=== PATIENT | female | born 1940 | race Caucasian/White ===

== ENCOUNTER 2017-08-04 17:15 | Emergency (ER) | payer MEDICARE, BC | END 2017-08-04 17:38 | disposition home or self-care (01) | LOC: SCSER 17:15 | DX: L30.9 Dermatitis, unspecified (principal); L03.90 Cellulitis, unspecified; E11.9 Type 2 diabetes mellitus without complications | CPT/HCPCS: 99282 ==

== ENCOUNTER 2020-07-03 07:59 | Outpatient (CLI) | payer MEDICARE, BC ==
[2020-07-03 11:26] LABS: Bilirubin Neg (Negative); Blood, Urine 10 (Negative); Glucose, Urine (Dipstick) 250 mg/dL (Negative); Ketone, Urine Negative (Negative); Leukocyte 100 (Negative); Nitrite Negative (Negative); Protein, Urine (Dipstick) 15 mg/dl (Neg-Trace); Urobilinogen Normal mg/dL (Less than 2)
[2020-07-03 11:48] LABS: Hemoglobin 15.9 g/dL (12.0-16.0); Mean Corpuscular Hemoglobin 31.5 PG (27.0-33.0); Mean Corpuscular Volume 95.6 fl (80.0-100.0); Mean Platelet Volume 11.7 fl (7.4-10.4); Platelet Count 188 10x3/uL (130-400); Red Blood Cell (RBC) Count 5.04 10x6/uL (3.90-5.20); White Blood Cell (WBC) Count 8.1 10x3/uL (4.5-11.0)
[2020-07-03 11:53] LABS: Anion Gap 15 mmol/L (10-20); BUN (Urea Nitrogen) 20 mg/dL (9.8-20.1); Calc. Creatinine Clearance 0 mL/min (70-130); Calcium 9.6 mg/dL (7.8-10.44); Carbon Dioxide 25 mmol/L (23-31); Chloride 102 mmol/L (98-107); Glucose 83 mg/dL (83-110); Sodium 138 mmol/L (136-145)
[2020-07-03 11:59] LABS: Bacteria/HPF 3+ HPF (None Seen); Clarity Slightly Cloudy (Clear); RBC/HPF 0-3 HPF (0-3); Squamous Epithelial 0-3 HPF (0-3)
[2020-07-03 12:03] LABS: PTT 25.3 sec (22.0-33.0); Prothrombin Time 10.2 sec (9.5-12.1)
[2020-07-04 00:15] LABS: SARS-CoV-2 PCR by NAA Not Detected (NotDetected)
--- NOTE | 2020-07-04 12:33 | EKG ---
Test Reason : Blood Pressure : / mmHG Vent. Rate : 069 BPM Atrial Rate : 069 BPM P-R Int : 180 ms QRS Dur : 112 ms QT Int : 418 ms P-R-T Axes : 064 -49 060 degrees QTc Int : 447 ms Normal sinus rhythm Left anterior fascicular block Abnormal ECG No previous ECGs available Confirmed by MÓNICA LAN ([id number]) on 07/04/2020 12:32:52 PM Referred By: LELE Confirmed By:MÓNICA LAN
== END 2020-07-03 08:00 | disposition home or self-care (01) ==
LOC: LABBT 07:59
PROVIDERS: ATTEND Urology
DX: Z01.818 Encounter for other preprocedural examination (principal); N39.3 Stress incontinence (female) (male); N36.42 Intrinsic sphincter deficiency (ISD); Z20.822 Contact with and (suspected) exposure to COVID-19
CPT/HCPCS: 80048; 81001; 85027; 85610; 85730; 87086; U0003; U0005; 87077; 87186; 87635; 93005; 93010

== ENCOUNTER 2020-07-08 10:18 | Day surgery (SDC) | payer MEDICARE, BC ==
[2020-07-07 11:08] VITALS: BMI 32.5
[~2020-07-08 10:18] MED LIST: Ketorolac Tromethamine 30 MG/ML VIAL ONE; Lidocaine 1% PF 5 ML VIAL ONE; Metoclopramide HCl 10 MG/2 ML VIAL ONE; Ondansetron PF 4 MG/2 ML Vial ONE; PROPOFOL 200 MG/20 ML VIAL ONE
[2020-07-08] MEDS ORDERED: Famotidine/PF 20 mg/2ml Vial ONE (10:20)
[2020-07-08] MEDS ORDERED: Fentanyl 100 MCG/2 ML VIAL ONE (10:20)
[2020-07-08] MEDS ORDERED: metroNIDAZOLE 500 MG/100 ML BAG ONE (10:26)
[2020-07-08] MEDS ORDERED: Bupivacaine 0.25% HCL 30 ML VIAL ONE (11:41)
--- NOTE | 2020-07-08 13:34 | OP ---
DATE OF PROCEDURE: 07/08/2020 PREOPERATIVE DIAGNOSIS: Stress incontinence with intrinsic sphincter deficiency. POSTOPERATIVE DIAGNOSIS: Stress incontinence with intrinsic sphincter deficiency. PROCEDURE PERFORMED: Pubovaginal sling using Advantage Fit sling. ANESTHESIA: General. COMPLICATIONS: None. ESTIMATED BLOOD LOSS: 50 mL. SPECIMEN: None. DESCRIPTION OF PROCEDURE: After informed consent, the patient was taken to the operating room, transferred to the table. Anesthesia was established. A time-out was performed, showing the correct patient, site, and procedure. Preoperative antibiotics were administered. She was prepped and draped in the lithotomy position. I began by placing an 18-[place] Rivas catheter with 10 mL instilled in the balloon. The bladder was drained completely. Midline was marked in the suprapubic area and a shad just at the edge of the pubic bone, one fingerbreadth laterally to midline on each side was made. A spinal needle was used to inject 0.25% Marcaine back behind the pubic bone all the way up to the skin at both those marked sites. I made small stab incisions at each of those aceves. I then made a longitudinal incision over the urethra and dissected laterally into the space of Retzius on both sides. The urethra was uninjured at this point. The trocar for the Advantage Fit sling was used to pass the left arm of the sling back along the pubic bone through the premade incision in the suprapubic site. The right arm was then passed. Cystoscopy was performed noting no evidence of bladder injury or mesh in the bladder. The vaginal tissue was then inspected noting no buttonholing. The sleeves of the sling were then removed and the sling tensioned properly. The bladder had been left full and before tensioning was easily able to cause stress incontinence, noting once it was tensioned properly that this was no longer the case. Care was taken to avoid overtightening and I noted that the sling was in good position at the mid urethra. The arms of the sling were then trimmed and the suprapubic incisions dressed with Dermabond. The vaginal incision was closed with 2-0 chromic in a running fashion. The vaginal edges were then cauterized. The patient was then awoken from anesthesia, transferred back to her hospital bed, and taken to PACU in stable condition, where she will undergo a trial of void with discharge either with or without a Irvas catheter based on the outcome. Job ID: [id number]
== END 2020-07-08 17:47 | disposition home or self-care (01) ==
LOC: SDC 10:18
PROVIDERS: ATTEND Urology
PROC: 0TSD0ZZ Reposition Urethra, Open Approach (ICD-10-PCS; principal; 2020-07-08)
DX: N39.3 Stress incontinence (female) (male) (principal); N36.42 Intrinsic sphincter deficiency (ISD); Z79.4 Long term (current) use of insulin; Z79.82 Long term (current) use of aspirin; Z79.899 Other long term (current) drug therapy; Z88.0 Allergy status to penicillin; Z96.659 Presence of unspecified artificial knee joint
CPT/HCPCS: C1781; J0690; J1885; J2405; J2704; J2765; J3010; S0020; S0028

== ENCOUNTER 2021-03-26 11:44 | Outpatient (CLI) | payer MEDICARE, BC ==
[2021-03-26 13:02] LABS: Mean Corpuscular HGB CONC 33.6 g/dL (32.0-36.0); Mean Corpuscular Hemoglobin 31.7 pg (27.0-33.0); Mean Corpuscular Volume 94.3 fl (81.6-98.3); Mean Platelet Volume 11.1 fl (7.4-10.4); Platelet Count 204 10x3/uL (150-450); RBC Distribution Width 13.2 % (11.5-14.5); Red Blood Cell (RBC) Count 4.73 10x6/uL (3.90-5.03); White Blood Cell (WBC) Count 8.1 10x3/uL (3.5-10.5)
[2021-03-26 13:16] LABS: Bilirubin Neg (Negative); Blood, Urine 50 (Negative); Clarity Clear (Clear); Glucose, Urine (Dipstick) >=1000 mg/dL (Negative); Ketone, Urine Negative (Negative); Leukocyte 500 (Negative); Nitrite Positive (Negative); Protein, Urine (Dipstick) 15 mg/dl (Neg-Trace); Specific Gravity, Urine 1.015 (1.002-1.036); Urobilinogen Normal mg/dL (Less than 2)
[2021-03-26 13:18] LABS: Anion Gap 15 mmol/L (10-20); BUN (Urea Nitrogen) 14 mg/dL (9.8-20.1); Calc. Creatinine Clearance 0 mL/min (70-130); Calcium 10.2 mg/dL (7.8-10.44); Carbon Dioxide 21 mmol/L (23-31); Chloride 106 mmol/L (98-107); Glucose 172 mg/dL (83-110); Potassium 4.1 mmol/L (3.5-5.1); Sodium 138 mmol/L (136-145)
[2021-03-26 14:04] LABS: RBC/HPF 0-3 HPF (0-3); Squamous Epithelial 0-3 HPF (0-3)
[2021-03-26 14:05] LABS: Bacteria/HPF 4+ HPF (None Seen)
[2021-03-27 01:05] LABS: SARS-CoV-2 PCR by NAA Not Detected (NotDetected)
== END 2021-03-26 11:45 | disposition home or self-care (01) ==
LOC: LABBT 11:44
PROVIDERS: ATTEND Urology
DX: Z01.818 Encounter for other preprocedural examination (principal); N39.3 Stress incontinence (female) (male); Z20.822 Contact with and (suspected) exposure to COVID-19
CPT/HCPCS: 80048; 81001; 85027; 87086; 93005; U0003; U0005; 93010

== ENCOUNTER 2021-03-31 06:56 | Day surgery (SDC) | payer MEDICARE, BC ==
[2021-03-30 12:28] VITALS: BMI 31.4
[2021-03-31] MEDS ORDERED: Levofloxacin 500 mg/D5W 100 ml Premix Bag ONE (07:50)
[2021-03-31] MEDS ORDERED: PROPOFOL 200 MG/20 ML VIAL ONE (09:11)
[2021-03-31] MEDS ORDERED: Phenazopyridine HCl 100 MG TAB ONE (09:42)
[2021-03-31] MEDS ORDERED: Ketorolac Tromethamine 30 MG/ML VIAL ONE (09:42)
== END 2021-03-31 10:26 | disposition home or self-care (01) ==
LOC: SDC 06:56
PROVIDERS: ATTEND Urology
PROC: 0TQD8ZZ Repair Urethra, Via Natural or Artificial Opening Endoscopic (ICD-10-PCS; principal; 2021-03-31)
DX: N36.42 Intrinsic sphincter deficiency (ISD) (principal); N39.3 Stress incontinence (female) (male); E11.9 Type 2 diabetes mellitus without complications; Z79.2 Long term (current) use of antibiotics; Z79.84 Long term (current) use of oral hypoglycemic drugs; Z79.4 Long term (current) use of insulin; Z79.899 Other long term (current) drug therapy; Z79.82 Long term (current) use of aspirin; Z88.0 Allergy status to penicillin
CPT/HCPCS: 36416; J1885; J1956; J2704; L8606